=== PATIENT | male | born 1950 | race Caucasian/White ===

== ENCOUNTER 2016-10-21 08:34 | Day surgery (SDC) | payer MEDICARE, OTHER ==
--- NOTE | 2016-10-21 12:30 | GI Report ---
REFERRING PHYSICIAN: Dr. Liborio Cartwright REPA[employer]ER [employer]: Shreyas Mclaughlin MD PROCEDURE MEDICATION: Propofol as per anesthesia. INDICATIONS: Patient is a 66-year-old man who had a colonoscopy 10 years ago. He is referred for an evaluation. Patient does have some underlying dementia. PROCEDURE PERFORMED: Colonoscopy and polypectomy. PROCEDURE: An Olympus video colonoscope was advanced to the rectum and slowly advanced to the cecum. The appendiceal orifice and terminal ileum looked normal. On slow withdrawal, the cecum, ascending colon, and transverse colon with no obvious intraluminal lesions noted. Descending colon is normal. No intraluminal lesions noted. In the sigmoid at 15 cm, patient had a 0.5 cm sessile polyp that was removed with electrocautery. Retroflexion of the rectum was normal. There were 2 pieces. There was a little residual after the first polypectomy and the second removed the remaining polypoid tissue. It appeared to be completely 100% removed. FINDINGS: Polyp in the sigmoid removed with electrocautery. RECOMMENDATIONS: 1. Consider re-looking at his colon within 5 years pending the pathology of the polyp. 2. Increase fiber in the diet. 3. Follow up with Dr. Cartwright. cc: Dr. Liborio SON
== END 2016-10-21 08:35 ==
LOC: OPSURG 08:34
PROVIDERS: ATTEND Internal Medicine Gastroenterology
DX: Z12.11 Encounter for screening for malignant neoplasm of colon (principal); D12.5 Benign neoplasm of sigmoid colon; K62.89 Other specified diseases of anus and rectum
CPT/HCPCS: 45385; 88305; J2704; J7120; S1016

== ENCOUNTER 2018-06-18 11:13 | Outpatient (CLI) | payer MEDICARE, OTHER ==
[2018-06-18 11:27] LABS: MEAN CORPUSCULAR HEMOGLOBIN 31.2 pg (28.0-34.0)
[2018-06-18 11:28] LABS: BASOPHILS % 0.5 (0.0-1.5); EOSINOPHILS % 2.4 % (0.0-6.8); MONOCYTES % 8.5 % (0.0-11.0); NEUTROPHILS # 3.1 # k/uL (1.4-7.7)
[2018-06-18 11:36] LABS: eGFR (Non-African) > 60
== END 2018-06-18 11:15 ==
LOC: LABRHC 11:13
PROVIDERS: ATTEND Nurse Practitioner Family
DX: Z00.01 Encounter for general adult medical examination with abnormal findings (principal); R97.20 Elevated prostate specific antigen [PSA]
CPT/HCPCS: 36415; 80053; 84153; 85025

== ENCOUNTER 2018-09-01 11:53 | Outpatient (CLI) | payer MEDICARE, OTHER ==
[2018-09-02 14:07] LABS: TOTAL PROTEIN SEE SCANNED RESULTS
== END 2018-09-01 11:55 ==
LOC: LAB 11:53
PROVIDERS: ATTEND Podiatrist Foot & Ankle Surgery
DX: B35.1 Tinea unguium (principal)
CPT/HCPCS: 36415; 80076